=== PATIENT | male | born 1965 | race African-American/Black ===

== ENCOUNTER 2019-06-26 10:15 | Emergency (ER) | payer MEDICAID, OTHER ==
[~2019-06-26] VITALS: Ht 180.3 cm; Wt 159.0 kg
[2019-06-26 10:55] VITALS: BP 130/73
[2019-06-26] MEDS ORDERED: IBUPROFEN 800MG TABLET PO ONE (11:00)
== END 2019-06-26 11:09 | disposition home or self-care (01) ==
LOC: ER 10:55
DX: K08.89 Other specified disorders of teeth and supporting structures (principal); K02.9 Dental caries, unspecified; I10 Essential (primary) hypertension; F17.200 Nicotine dependence, unspecified, uncomplicated
CPT/HCPCS: 99283

== ENCOUNTER 2019-07-06 15:19 | Emergency (ER) | payer MEDICAID ==
[~2019-07-06] VITALS: Ht 180.3 cm; Wt 146.0 kg
[2019-07-06 15:32] VITALS: BP 146/67
[2019-07-06] MEDS ORDERED: AMPICILLIN SOD/SULBACTAM NA 1.5 G in SODIUM CHLORIDE 0.9% 50 ML IV SCH (16:45)
[2019-07-06 17:07] LABS: BASOPHILS % 0.6 % (0.0-2.0); EOSINOPHILS % 1.8 % (0.0-5.0); HEMATOCRIT. 42.2 % (42.0-52.0); HEMOGLOBIN. 14.2 g/dL (14.0-18.0); LYMPHOCYTES % 22.6 % (20.0-50.0); MEAN CORPUSCULAR HEMOGLOBIN 27.6 pg (28.0-32.0); MEAN CORPUSCULAR VOLUME 81.7 fL (80.0-94.0); MEAN PLATELET VOLUME 6.6 fl (7.4-10.4); MONOCYTES % 5.5 % (2.0-8.0); NEUTROPHILS % 69.5 % (40.0-76.0); PLATELET 363 x1000/uL (130-400); RED BLOOD CELL COUNT 5.16 mill/uL (4.7-6.1); RED CELL DISTRIBUTION WIDTH 14.4 % (11.6-14.6)
[2019-07-06 17:13] LABS: CHLORIDE 106 mEq/L (98-107)
[2019-07-06] MEDS ORDERED: KETOROLAC 30MG/ML VIAL IV STA (18:01)
[2019-07-06] MEDS ORDERED: TRAMADOL HCL/ACETAMINOPHEN 37.5/325MG TABLET PO ONE (18:15)
== END 2019-07-06 18:12 | disposition left against medical advice (07) ==
LOC: ER 15:19
DX: S02.5XXA Fracture of tooth (traumatic), initial encounter for closed fracture (principal); L03.211 Cellulitis of face; L02.01 Cutaneous abscess of face; I10 Essential (primary) hypertension; F17.200 Nicotine dependence, unspecified, uncomplicated; X58.XXXA Exposure to other specified factors, initial encounter; Y93.89 Activity, other specified; Y92.89 Other specified places as the place of occurrence of the external cause; Y99.8 Other external cause status
CPT/HCPCS: 36415; 70490; 80048; 85025; 87040; 96365; 99284; J0295